=== PATIENT | male | born 1960 | race Caucasian/White ===

== ENCOUNTER 2018-04-20 15:43 | Emergency (ER) | payer BC, SELFPAY ==
[~2018-04-20] VITALS: Ht 172.7 cm; Wt 140.9 kg
[~2018-04-20 15:43] MED LIST: BENZ-16 PO
[2018-04-20 15:48] VITALS: BP 169/75
[2018-04-20] MEDS ORDERED: ondansetron 4mg rapidly disintigrating tab PO ONE (17:00)
[2018-04-20] MEDS ORDERED: morphine 4 MG/ML inj SYRINge IM ONE (17:00)
[2018-04-20] MEDS ORDERED: HYDR-565 PO (17:09)
[2018-04-20] MEDS ORDERED: morphine 10mg/ml inj. IM ONE (17:10)
[2018-04-20] MEDS ORDERED: TETanus/Pertussis (Acell)/Diphther VAC/PF (Tdap-Adult) 0.5ml syringe IM ONE (17:40)
== END 2018-04-20 18:05 | disposition home or self-care (01) ==
LOC: ER 15:43
DX: S42.291A Other displaced fracture of upper end of right humerus, initial encounter for closed fracture (principal); S42.251A Displaced fracture of greater tuberosity of right humerus, initial encounter for closed fracture; Z90.89 Acquired absence of other organs; W19.XXXA Unspecified fall, initial encounter; Y93.01 Activity, walking, marching and hiking; Y92.89 Other specified places as the place of occurrence of the external cause; Y99.9 Unspecified external cause status
CPT/HCPCS: 29105; 73030; 90471; 90715; 96372; 99284; A4565; A6449; J2270